=== PATIENT | female | born 1945 | race Two or more races ===

== ENCOUNTER 2021-10-28 20:42 | Emergency (ER) | payer MEDICARE, BC ==
[2021-10-28 21:46] LABS: ESTIMATED GFR 59 mL/min (>60)
[2021-10-28] MEDS ORDERED: Aspirin 81 MG Tab.Chew PO ONE (22:26)
[2021-10-28] MEDS ORDERED: atorvaSTATin 40 MG Tab PO ONE (22:26)
== END 2021-10-28 23:22 | disposition home or self-care (01) ==
LOC: JD.ED 20:42
DX: G45.9 Transient cerebral ischemic attack, unspecified (principal); I10 Essential (primary) hypertension; Z79.82 Long term (current) use of aspirin; Z20.822 Contact with and (suspected) exposure to COVID-19
CPT/HCPCS: 36415; 70450; 80053; 82947; 83735; 85025; 85610; 93005; 99285; A9270; U0002

== ENCOUNTER 2024-11-12 23:12 | Inpatient (IN) | payer MEDICARE, BC ==
[2024-11-13 01:20] LABS: BASOPHILS ABSOLUTE AUTO 0.1 K/mm3 (0.0-0.2); BASOPHILS PERCENT AUTO 0.5 % (0.0-1.0); EOSINOPHILS ABSOLUTE AUTO 0.0 K/mm3 (0.0-0.4); EOSINOPHILS PERCENT AUTO 0.1 % (0.0-6.0); IMMATURE GRAN ABSOLUTE AUTO 0.10 K/mm3 (0.00-0.05); IMMATURE GRAN PERCENT AUTO 0.5 % (0.0-0.4); LYMPHOCYTES ABSOLUTE AUTO 1.3 K/mm3 (1.0-4.8); LYMPHOCYTES PERCENT AUTO 6.9 % (24.0-44.0); MEAN PLATELET VOLUME 9.3 fl (9.4-12.3); MONOCYTES ABSOLUTE AUTO 1.1 K/mm3 (0.0-0.8); MONOCYTES PERCENT AUTO 6.0 % (0.0-8.0); NEUTROPHILS ABSOLUTE AUTO 15.7 K/mm3 (1.8-7.7); NEUTROPHILS PERCENT AUTO 86.0 % (41.0-71.0); NRBC ABSOLUTE 0.00 (0.00-0.02); NRBC PERCENT 0.0 % (0.0-0.2); PLATELET COUNT,PLT 221 K/mm3 (150-400); RED BLOOD CELL COUNT 5.01 M/mm3 (4.10-5.30); WHITE BLOOD CELL COUNT,WBC 18.23 K/mm3 (3.9-11.3)
[2024-11-13 01:37] LABS: INR 1.16
[2024-11-13 01:41] LABS: A/G RATIO 1.0 (1-2); ALANINE AMINOTRANSFERASE,ALT 21 U/L (14-59); ASPARTATE AMNIOTRANSFERASE,AST 19 U/L (15-37); BILIRUBIN TOTAL 0.5 mg/dL (0.2-1.0); BLOOD UREA NITROGEN,BUN 13 mg/dL (7-18); CARBON DIOXIDE,CO2 29 mEq/L (21-32); CHLORIDE,CL 107 mEq/L (98-107); CREATINE KINASE,CK 144 U/L (26-192); CREATININE 0.7 mg/dL (0.55-1.02); ESTIMATED GFR 89 mL/min (>60); GLUCOSE RANDOM 129 mg/dL (70-99); POTASSIUM,K 3.9 mEq/L (3.5-5.1); PROTEIN TOTAL,TP 6.5 g/dl (6.4-8.2); SODIUM,NA 141 mEq/L (136-145)
[2024-11-13] MEDS ORDERED: fentaNYL 100 MCG/2 ML SDV IVPUSH ONE (05:41)
[2024-11-13] MEDS ORDERED: Naloxone 0.4 MG/ML SDV IVPUSH PRN (05:41)
[2024-11-13] MEDS ORDERED: fentaNYL 100 MCG/2 ML SDV IVPUSH PRN (06:25)
[2024-11-13] MEDS ORDERED: Ondansetron 4 MG/2 ML SDV IV PRN (06:27)
[2024-11-13 10:05] LABS: APPEARANCE,URINE CLOUDY (Clear); GLUCOSE,URINE NEGATIVE (Negative); OCCULT BLOOD,URINE NEGATIVE (Negative)
[2024-11-13 10:38] LABS: EPITHELIAL CELLS,URINE 0-5 /hpf (0-5); TRIPLE PHOSPHATE CRYSTALS,UR FEW /hpf
[2024-11-14 05:50] LABS: MEAN PLATELET VOLUME 9.8 fl (9.4-12.3); NRBC ABSOLUTE 0.00 (0.00-0.02); NRBC PERCENT 0.0 % (0.0-0.2); PLATELET COUNT,PLT 175 K/mm3 (150-400); RED BLOOD CELL COUNT 4.16 M/mm3 (4.10-5.30); WHITE BLOOD CELL COUNT,WBC 10.60 K/mm3 (3.9-11.3)
[2024-11-14 06:15] LABS: A/G RATIO 0.8 (1-2); ALANINE AMINOTRANSFERASE,ALT 19.0 U/L (14-59); ASPARTATE AMNIOTRANSFERASE,AST 24.0 U/L (15-37); BILIRUBIN TOTAL 0.8 mg/dL (0.2-1.0); BLOOD UREA NITROGEN,BUN 14.0 mg/dL (7-18); CARBON DIOXIDE,CO2 32.0 mEq/L (21-32); CHLORIDE,CL 104.0 mEq/L (98-107); CREATININE 0.6 mg/dL (0.55-1.02); EST CRCL DRUG DOSING (CG) 67.8 mL/min; ESTIMATED GFR 92.0 mL/min (>60); GLUCOSE RANDOM 101.0 mg/dL (70-99); POTASSIUM,K 4.1 mEq/L (3.5-5.1); PROTEIN TOTAL,TP 6.1 g/dl (6.4-8.2); SODIUM,NA 140.0 mEq/L (136-145)
[2024-11-14] MEDS: Iopamidol 755 Mg/ML 100 ML Bottle IVPUSH ONE (13:37)
[2024-11-15 06:14] LABS: BLOOD UREA NITROGEN,BUN 11.0 mg/dL (7-18); CARBON DIOXIDE,CO2 31.0 mEq/L (21-32); CHLORIDE,CL 106.0 mEq/L (98-107); CREATININE 0.5 mg/dL (0.55-1.02); EST CRCL DRUG DOSING (CG) 81.37 mL/min; ESTIMATED GFR 97.0 mL/min (>60); GLUCOSE RANDOM 98.0 mg/dL (70-99); PHOSPHORUS 3.4 mg/dL (2.6-4.7); POTASSIUM,K 4.2 mEq/L (3.5-5.1); SODIUM,NA 142.0 mEq/L (136-145)
[2024-11-15] MEDS: Cholecalciferol (Vitamin D3) 5,000 UNIT Cap PO SCH (15:57)
== END 2024-11-18 11:05 | DRG 189 ==
LOC: JD.ED 23:12 → JD.MS 11-13 05:57
PROVIDERS: ADMIT Internal Medicine; ATTEND Family Medicine
DX: S32.9XXA Fracture of unspecified parts of lumbosacral spine and pelvis, initial encounter for closed fracture (principal); D72.829 Elevated white blood cell count, unspecified; J96.01 Acute respiratory failure with hypoxia; S32.810A Multiple fractures of pelvis with stable disruption of pelvic ring, initial encounter for closed fracture; J98.11 Atelectasis; J44.9 Chronic obstructive pulmonary disease, unspecified; W19.XXXA Unspecified fall, initial encounter; I10 Essential (primary) hypertension; H91.90 Unspecified hearing loss, unspecified ear; H54.7 Unspecified visual loss; F41.9 Anxiety disorder, unspecified; F32.A Depression, unspecified; F17.210 Nicotine dependence, cigarettes, uncomplicated; M81.0 Age-related osteoporosis without current pathological fracture; E78.00 Pure hypercholesterolemia, unspecified; I25.10 Atherosclerotic heart disease of native coronary artery without angina pectoris; M85.89 Other specified disorders of bone density and structure, multiple sites; G96.198 Other disorders of meninges, not elsewhere classified; R91.1 Solitary pulmonary nodule; E55.9 Vitamin D deficiency, unspecified; K59.00 Constipation, unspecified; M15.9 Polyosteoarthritis, unspecified; Z79.899 Other long term (current) drug therapy; Z89.211 Acquired absence of right upper limb below elbow; Z86.16 Personal history of COVID-19; Z79.82 Long term (current) use of aspirin; W18.30XA Fall on same level, unspecified, initial encounter; Y92.89 Other specified places as the place of occurrence of the external cause
CPT/HCPCS: 36415; 71045; 71045-26; 71275; 71275-26; 72192; 72192-26; 73501-26-LT; 73501-LT; 80048; 80053; 81001; 82306; 82550; 83735; 84100; 85025; 85027; 85610; 93005; 93010; 94640; 94667; 94668; 94760; 94761; 97110-GP; 97116-GP; 97161-GP; 97166-GO; 97530-GO; 97530-GP; 97535-GO; 99232; 99239; 99285; A9270-GY; J0456; J1650; J2270; J7030; J7050; J7512; Q9967